=== PATIENT | male | born 1960 | race African-American/Black ===

== ENCOUNTER 2019-02-26 07:33 | Emergency (ER) | payer MEDICAID ==
[~2019-02-26] VITALS: Ht 177.8 cm; Wt 73.0 kg
[2019-02-26] MEDS ORDERED: IBUPROFEN 600MG TABLET PO ONE (08:00)
[2019-02-26 09:10] VITALS: BP 136/72
== END 2019-02-26 09:10 | disposition home or self-care (01) ==
LOC: ER 07:33
DX: S00.83XA Contusion of other part of head, initial encounter (principal); S00.212A Abrasion of left eyelid and periocular area, initial encounter; S00.81XA Abrasion of other part of head, initial encounter; H11.32 Conjunctival hemorrhage, left eye; V43.52XA Car driver injured in collision with other type car in traffic accident, initial encounter; W22.11XA Striking against or struck by driver side automobile airbag, initial encounter; Y93.89 Activity, other specified; Y92.488 Other paved roadways as the place of occurrence of the external cause
CPT/HCPCS: 71045; 99283